=== PATIENT | male | born 1980 | race Caucasian/White ===

== ENCOUNTER → 2022-12-01 | Outpatient (CLI) | payer BC, OTHER ==
[~2022-12-01] MED LIST: VENTAER INH
== END ==
LOC: M WUC 11:13
PROVIDERS: ATTEND Registered Nurse
DX: M25.511 Pain in right shoulder (principal)

== ENCOUNTER → 2023-04-04 | Outpatient (CLI) | payer BC, OTHER | LOC: M PLAIMG 13:30 | PROVIDERS: ATTEND Otolaryngology | DX: J32.9 Chronic sinusitis, unspecified (principal) ==

== ENCOUNTER 2023-07-03 16:07 | Emergency (ER) | payer BC ==
[~2023-07-03] VITALS: Ht 177.8 cm; Wt 115.9 kg
[2023-07-03] MEDS ORDERED: NAPR-837 PO (20:07)
[2023-07-03] MEDS ORDERED: METH-1164 PO (20:07)
[2023-07-03] MEDS: methocarbamoL 500 MG TAB PO ONE (20:14)
[2023-07-03] MEDS: KETOROLAC 60MG 2ML VIAL IM ONE (20:14)
[2023-07-03 20:30] VITALS: BP 144/81; TEMP 98.9; O2SAT 99
== END 2023-07-03 20:31 | disposition home or self-care (01) ==
LOC: M ED 16:07
DX: S20.219A Contusion of unspecified front wall of thorax, initial encounter (principal); M25.511 Pain in right shoulder; V28.01XA Electric (assisted) bicycle driver injured in noncollision transport accident in nontraffic accident, initial encounter; M51.26 Other intervertebral disc displacement, lumbar region; Z88.1 Allergy status to other antibiotic agents; Z91.048 Other nonmedicinal substance allergy status; Z91.018 Allergy to other foods; Z91.030 Bee allergy status; Y92.009 Unspecified place in unspecified non-institutional (private) residence as the place of occurrence of the external cause; Y93.89 Activity, other specified; Y99.9 Unspecified external cause status; Z79.1 Long term (current) use of non-steroidal anti-inflammatories (NSAID); Z79.899 Other long term (current) drug therapy
CPT/HCPCS: 71101; 73030; 96372; 99284; J1885

== ENCOUNTER → 2023-11-28 | Outpatient (CLI) | payer BC ==
[~2023-11-28] MED LIST changes: +METH-1164 PO; +NAPR-837 PO
== END ==
LOC: M RAD 07:53
PROVIDERS: ATTEND Dietitian, Registered
DX: D69.6 Thrombocytopenia, unspecified (principal); R16.0 Hepatomegaly, not elsewhere classified; K76.0 Fatty (change of) liver, not elsewhere classified